=== PATIENT | male | born 1960 | race Hispanic/Latino ===

== ENCOUNTER → 2019-05-21 | Outpatient (CLI) | payer SELFPAY ==
--- NOTE | 2019-05-21 10:00 | NUR ---
MBSS COMPLETED. SHALLOW TRANSIENT PENETRATION WITH THIN LIQUIDS. RECOMMEND MECHANICAL SOFT/CHOPPED, NECTAR-THICK LIQUIDS; PILLS CRUSHED. BIN TRIPPER OPERATOR PROVIDED RESULTS AND RECOMMENDATIONS VIA VERBAL AND WRITTEN MODALITY. ALL QUESTIONS ANSWERED AT THIS TIME. BIN TRIPPER OPERATOR PROVIDED Pt WITH THICKENER TO INITIATE P.O. FOR LIQUIDS. Addendum: 05/21/19 at 1304 by [facility] Amended: Links added.
== END | disposition home or self-care (01) ==
LOC: RAH 09:23
PROVIDERS: ATTEND Internal Medicine Gastroenterology
DX: R13.12 Dysphagia, oropharyngeal phase (principal); R63.3 Feeding difficulties
CPT/HCPCS: 74230; 92611

== ENCOUNTER → 2019-07-29 | Outpatient (CLI) | payer SELFPAY ==
[~2019-07-29] MED LIST: DIATR MEGLU/DIATRIZOATE SODIUM 30 ML BOTTLE ONE
== END | disposition home or self-care (01) ==
LOC: RAH 10:54
PROVIDERS: ATTEND Internal Medicine Gastroenterology
DX: K94.20 Gastrostomy complication, unspecified (principal); M47.815 Spondylosis without myelopathy or radiculopathy, thoracolumbar region
CPT/HCPCS: 74018; Q9963

== ENCOUNTER → 2020-02-04 | Outpatient (CLI) | payer SELFPAY ==
--- NOTE | 2020-02-04 09:45 | NUR ---
MBSS COMPLETED PENETRATION WITH THIN VIA SPOON, THIN VIA CUP, AND NECTAR VIA CUP. RECOMMEND MECHANICAL SOFT/GROUND SOLIDS, HONEY THICK LIQUIDS TOLERATED. INVENTORY CONTROL SUPERVISOR EDUCATED Pt ON RISKS AND CONSEQUENCES OF ASPIRATION. INVENTORY CONTROL SUPERVISOR RECOMMENDED SPEECH THERAPY 3-5 X A WEEK AND SEEK GI CONSULT DUE TO PEG PLACEMENT AND FEEDINGS. Pt WAS GIVEN A CAN OF THICKENER AND INSTRUCTED ON HOW TO REACH HONEY THICK CONSISTENCIES. ALL QUESTIONS ANSWERED AT THIS TIME. Addendum: 02/04/[address] [facility] Amended: Links added.
== END | disposition home or self-care (01) ==
LOC: RAH 09:25
PROVIDERS: ATTEND Internal Medicine Gastroenterology
DX: R13.12 Dysphagia, oropharyngeal phase (principal)
CPT/HCPCS: 74230; 92611

== ENCOUNTER → 2020-03-09 | Outpatient (CLI) | payer SELFPAY | END | disposition home or self-care (01) | LOC: LAB 14:40 | PROVIDERS: ATTEND Family Medicine | DX: Z43.1 Encounter for attention to gastrostomy (principal); M47.815 Spondylosis without myelopathy or radiculopathy, thoracolumbar region | CPT/HCPCS: 74018 ==

== ENCOUNTER → 2020-09-29 | Outpatient (CLI) | payer OTHER, SELFPAY | END | disposition home or self-care (01) | LOC: RAH 10:30 | PROVIDERS: ATTEND Family Medicine | DX: K94.20 Gastrostomy complication, unspecified (principal) | CPT/HCPCS: 74018; Q9963 ==